=== PATIENT | female | born 1965 | race Caucasian/White ===

== ENCOUNTER → 2021-11-20 | Outpatient (CLI) | payer MEDICARE, MEDICAID ==
[~2021-11-20] MED LIST: ATEN50TA PO; CYCL10TA9 PO; DESL5TAB5 PO; MORP15TA8 PO; MORP30CA16 PO; PRM25T PO
== END ==
LOC: ORTHO 10:40
PROVIDERS: ATTEND Orthopaedic Surgery
DX: M25.371 Other instability, right ankle (principal); M25.562 Pain in left knee

== ENCOUNTER → 2022-11-26 | Outpatient (CLI) | payer MEDICARE, MEDICAID | LOC: ORTHO 08:32 | PROVIDERS: ATTEND Orthopaedic Surgery | DX: M25.372 Other instability, left ankle (principal) | CPT/HCPCS: 99213 ==

== ENCOUNTER → 2023-02-23 | Outpatient (CLI) | payer MEDICARE, MEDICAID | LOC: ORTHO 10:24 | PROVIDERS: ATTEND Orthopaedic Surgery | DX: M25.562 Pain in left knee (principal) | CPT/HCPCS: 99213 ==